=== PATIENT | female | born 1950 | race Caucasian/White ===

== ENCOUNTER 2018-10-25 17:24 | Emergency (ER) | payer OTHER ==
[2018-10-25 17:37] VITALS: BP 130/68
--- NOTE | 2018-10-25 17:50 | EDPHY ---
H & P Stated Complaint: fell off of curb, pain in right hip Source: Patient Exam Limitations: No limitations - Personal History Current Tetanus/Diphtheria Vaccine: Yes Current Tetanus Diphtheria and Acellular Pertussis (TDAP): Yes - Medical/Surgical History Hx Asthma: No Hx Chronic Respiratory Disease: No Hx Diabetes: No Hx Cardiac Disease: No Hx Renal Disease: No Hx Cirrhosis: No Hx Alcoholism: No Hx HIV/AIDS: No Hx Splenectomy or Spleen Trauma: No Other PMH: osteoporosis, mulitple orthopedic sx - Social History Smoking Status: Never smoked Time Seen by Provider: 10/25/18 17:47 HPI/ROS: HPI: This is a 68-year-old female who presents with Chief Complaint: fell off of curb, pain in right hip Location: Right hip Quality: Pain, injury Duration: 45 min prior to arrival Signs and Symptoms: No bleeding, no radiation, no numbness, no weakness, no tingling, no incontinence, no decreased range of motion, no swelling, + pain, no fever Timing: Acute Severity: 11/05 Context: Patient just got out of the car and stepped up over the sidewalk and accidentally tripped and fell on the uneven pavement. She reports that she hit her right elbow and right lateral hip. She felt immediate, constant, moderate, nonradiating pain. She was ambulatory at the scene. Denies LOC/head injury/ neck pain/dizziness/nausea/vomiting/amnesia. Reports that she felt extreme "anxiety so she took a Risperdal." Patient has a history of "rods in both hips. " Walking without any difficulty. Modifying Factors: See above Comment: ROS: A comprehensive 10 system review of systems is otherwise negative aside from elements mentioned in the history of present illness. MEDICAL/SURGICAL/SOCIAL HISTORY: Medical history: Osteoporosis, anxiety taking Risperdal, uterine prolapse Surgical history: Multiple orthopedic surgeries including bilateral "rods in hip" Social history: . CONSTITUTIONAL: Elderly physically fit white female, at bedside, awake and alert, no obvious distress HEENT: Atraumatic and normocephalic, PERRL, EOMI. Nares patent; no rhinorrhea; no nasal mucosal edema. Tympanic membranes clear. Oropharynx clear, no exudate and moist pink mucosa. Airway patent. No lymphadenopathy. No meningismus. Cardiovascular: Normal S1/S2, regular rate, regular rhythm, without murmur rub or gallop. PULMONARY/CHEST: Symmetrical and nontender. Clear to auscultation bilaterally. Good air movement. No accessory muscle usage. ABDOMEN: Soft, nondistended, nontender, no rebound, no guarding, no peritoneal signs, no masses or organomegaly. No CVAT. EXTREMITIES: 2/2 pulses, strength 5/5, right HIP: Flexion to 125, extension to 115, hyper extension to 15, abduction to 45. Pain with internal rotation and external rotation. Mild tenderness over greater trochanter. Leg lengths are equal. Ambulatory without any deficits. Right ELBOW: Full extension to 180, flexion to 150, no tenderness over medial epicondyle, no tenderness over lateral epicondyle, no effusion. no deformities, no clubbing, no cyanosis or edema. NEUROLOGICAL: no focal neuro deficits. GCS 15. SKIN: Warm and dry, no erythema. no rash. Good capillary refill. (Christa Gould) Constitutional: Initial Vital Signs Temperature (C) 36.6 C 10/25/18 17:32 Heart Rate 78 10/25/18 17:32 Respiratory Rate 16 10/25/18 17:32 Blood Pressure 130/68 H 10/25/18 17:32 O2 Sat (%) 98 10/25/18 17:32 O2 Delivery Mode Room Air Allergies/Adverse Reactions: erythromycin base Allergy (Verified 10/25/18 17:38) Home Medications: Medication Instructions Recorded NK [No Known Home Meds] 10/25/18 Medical Decision Making ED Course/Re-evaluation: Vital signs reviewed and stable upon arrival. Fall was mechanical in nature Right hip x-ray ordered and my read via PAC shows screws in place with normal anatomic alignment and no fracture, no dislocation. X-ray also shows moderate stool burden and pessary in place. Suspect that this is a contusion and advised supportive care. Ambulatory without deficits at discharge. No signs of neurovascular compromise/tenting of skin/compartment syndrome/ extremities and joints examined above and below area of concern and are neurovascularly intact. This patient was seen under the supervision of my secondary supervising physician. I evaluated and cared for this patient independently. (Christa Gould) Differential Diagnosis: Differential diagnosis includes but is not limited to hip dislocation, femur fracture, hip fracture, contusion, bursitis. (Christa Gould) Other Provider: The patient was evaluated and managed by the Physician [facility]. My co- signature indicates that I have reviewed this chart and I agree with the findings and plan of care as documented. I am the secondary supervising physician. (Asya Casarez) Departure - Departure Disposition: Home, Routine, Self-Care Clinical Impression: Contusion of right hip, initial encounter Condition: Good Instructions: Hip Contusion (ED) Additional Instructions: Take Tylenol 650 mg every 4 hours and/or Ibuprofen 600 mg every 8 hours with food as needed for pain. Apply ice for 30 minutes at a time; 2-3 times per day for the next 1-2 days. Follow up with Orthopedics in 7-10 days if symptoms persist at which time they will evaluate and recommend with you if conservative management versus further imaging is indicated. The x-rays obtained in the emergency department today demonstrate no evidence of an obvious fracture. Sometimes fractures are not obvious on the initial set of x-rays performed in the ED. For this reason, you should have repeat x-rays performed in 7-10 days if you are having any pain exclude the possibility of an occult fracture. Referrals: Sowmya Caldwell MD [Primary Care Provider] - As per Instructions Michelle Hollins MD [Medical Doctor] - As per Instructions
== END 2018-10-25 18:22 | disposition home or self-care (01) ==
DX: S70.01XA Contusion of right hip, initial encounter (principal)